=== PATIENT | female | born 1955 ===

== ENCOUNTER → 2018-11-01 | Outpatient (REF) | payer OTHER ==
[2018-11-08 14:21] LABS: HPV HYBRID CAPTURE II Negative (NEGATIVE)
== END ==
LOC: M LAB LCGH 12:21
PROVIDERS: ATTEND Obstetrics & Gynecology
DX: N93.9 Abnormal uterine and vaginal bleeding, unspecified (principal); N95.2 Postmenopausal atrophic vaginitis
CPT/HCPCS: 87624; G0123

== ENCOUNTER → 2018-11-30 | Outpatient (REF) | payer OTHER | LOC: M LAB LCGH 12:02 | PROVIDERS: ATTEND Obstetrics & Gynecology | DX: N80.9 Endometriosis, unspecified (principal) ==